=== PATIENT | female | born 1990 | race Caucasian/White ===

== ENCOUNTER 2024-03-28 01:11 | Emergency (ER) | payer MEDICAID, SELFPAY ==
[2024-03-28] MEDS: EPINEPHrine 1:10,000 1 MG/10 ML Syringe IVPUSH PRN (01:27)
[2024-03-28] MEDS: Naloxone 2 MG/2 ML Syringe IVPUSH ONE (01:31)
[2024-03-28] MEDS: Sodium Chloride 0.9% 1,000 ML IV ONE ×2 (01:33→05:05)
[2024-03-28] MEDS: Sodium Bicarbonate 8.4% 50 MEQ/50 ML Syringe IVPUSH ONE (01:45)
[2024-03-28] MEDS: EPINEPHrine 1 MG in Dextrose 5% in Water 99 ML IV SCH (01:48)
[2024-03-28 02:17] LABS: BASOPHILS ABSOLUTE AUTO 0.12 10^3/uL (0.00-0.50); BASOPHILS PERCENT AUTO 0.6 % (0-1); EOSINOPHILS ABSOLUTE AUTO 0.31 10^3/uL (0.00-1.50); EOSINOPHILS PERCENT AUTO 1.5 % (0-6); HEMOGLOBIN 13.7 g/dL (12.0-16.0); IMMATURE GRAN ABSOLUTE AUTO 2.26 10^3/uL (0.00-0.49); IMMATURE GRAN PERCENT AUTO 10.7 % (0.0-4.9); LYMPHOCYTES ABSOLUTE AUTO 5.15 10^3/uL (0.60-5.00); LYMPHOCYTES PERCENT AUTO 24.4 % (24-44); MEAN CORPUSCULAR HEMOGLOBIN 30.5 pg (27.0-32.0); MEAN CORPUSCULAR HGB CONC 30.4 g/dL (32.0-36.0); MEAN CORPUSCULAR VOLUME 100.2 fL (83.0-97.0); MONOCYTES ABSOLUTE AUTO 1.25 10^3/uL (0.00-1.50); MONOCYTES PERCENT AUTO 5.9 % (0-10); NEUTROPHILS PERCENT AUTO 56.9 % (41-71); PLATELET COUNT,PLT 264 10^3/uL (150-400); RED BLOOD CELL COUNT 4.49 x10^6/uL (4.00-5.50)
[2024-03-28 02:22] LABS: APPEARANCE,URINE CLEAR (CLEAR); BILIRUBIN,URINE NEGATIVE (NEGATIVE); COLOR,URINE YELLOW (YELLOW); GLUCOSE,URINE NEGATIVE (NEGATIVE); KETONES,URINE NEGATIVE (NEGATIVE); LEUKOCYTE ESTERASE,URINE NEGATIVE (NEGATIVE); NITRITE,URINE NEGATIVE (NEGATIVE); OCCULT BLOOD,URINE LARGE (NEGATIVE); PROTEIN,URINE NEGATIVE (NEGATIVE); UROBILINOGEN,URINE 0.2 EU/dL (0.2-1.0)
[2024-03-28 02:25] LABS: WHITE BLOOD CELL COUNT,WBC 21.1 10^3/uL (4.0-11.0)
[2024-03-28 02:27] LABS: AMPHETAMINES,URINE POSITIVE (NEGATIVE); BARBITURATES,URINE NEGATIVE (NEGATIVE); BENZODIAZEPINE,URINE NEGATIVE (NEGATIVE); MDMA (ECSTASY), URINE NEGATIVE (NEGATIVE); METHADONE,URINE NEGATIVE (NEGATIVE); METHAMPHETAMINES,URINE POSITIVE (NEGATIVE); OPIATES,URINE NEGATIVE (NEGATIVE); OXYCODONE,URINE NEGATIVE (NEGATIVE); PHENCYCLIDINE,URINE NEGATIVE (NEGATIVE); TCA,URINE NEGATIVE (NEGATIVE)
[2024-03-28 02:30] LABS: BACTERIA,URINE FEW /HPF (NOT SEEN); RBC,URINE 40-50 /HPF (0-5); WBC,URINE 0-5 /HPF (0-5)
[2024-03-28 02:36] LABS: ALANINE AMINOTRANSFERASE,ALT 54 U/L (12-78); ALBUMIN 2.7 g/dL (3.4-5.0); ALKALINE PHOSPHATASE 97 U/L (46-116); ASPARTATE AMNIOTRANSFERASE,AST 82 U/L (15-37); BILIRUBIN TOTAL 0.2 mg/dL (0.0-1.0); BLOOD UREA NITROGEN,BUN 6 mg/dL (7-18); CALCIUM 8.5 mg/dL (8.4-10.1); CARBON DIOXIDE,CO2 16 mmol/L (21-32); CHLORIDE,CL 105 mEq/L (98-106); CREATININE 1.3 mg/dL (0.6-1.0); LIPASE 58 U/L (16-77); MAGNESIUM 2.8 mg/dL (1.8-2.4); POTASSIUM,K 3.5 mEq/L (3.5-5.0); SODIUM,NA 144 mEq/L (136-145)
[2024-03-28 02:39] LABS: C-REACTIVE PROTEIN < 0.50 mg/dL (<=0.50); ESTIMATED GFR 55 mL/min (>=60); GLUCOSE RANDOM 453 mg/dL (75-99)
[2024-03-28] MEDS: Sodium Chloride 0.9% 100 ML ONE ×2 (04:35)
[2024-03-28] MEDS: Naloxone 2 MG/2 ML Syringe ONE (04:35)
[2024-03-28] MEDS: EPINEPHrine 1 MG/ML SDV ONE ×2 (04:35)
[2024-03-28] MEDS: Sodium Chloride 0.9% 1,000 ML ONE ×2 (04:35)
== END 2024-03-28 03:04 ==
LOC: CC.ED 01:11
DX: I46.9 Cardiac arrest, cause unspecified (principal); R73.9 Hyperglycemia, unspecified; E87.20 Acidosis, unspecified
CPT/HCPCS: 31500; 36415; 71045; 80053; 80305-QW; 80307; 81001; 83605; 83690; 83735; 84484; 85025; 86140; 92950; 93005; 93010; 96361; 96374; 96375; 99285-25; 99291; 99292; J0171; J2310; J3490; J7030; J7060